=== PATIENT | female | born 1945 | race Caucasian/White ===

== ENCOUNTER 2024-04-21 17:59 | Emergency (ER) | payer MEDICARE, SELFPAY ==
[2024-04-21 18:01] VITALS: BP 176/112
[2024-04-21 18:38] VITALS: BMI 28.8
[2024-04-21 18:41] VITALS: BP 156/83
[2024-04-21 18:47] LABS: Blood Urea Nitrogen 25 mg/dl (7-17); Calcium 9.9 mg/dl (8.4-10.2); Carbon Dioxide 24 mmol/L (22-30); Chloride 101 mmol/L (98-107); Estimated Creatinine Clearance 57 ml/min; Glucose 133 mg/dl (70-99); Sodium 137 mmol/L (135-145); eGFR > 60.00
[2024-04-21 19:00] VITALS: BP 161/70
[2024-04-21 20:08] VITALS: BP 136/66
[2024-04-21] MEDS: DUONEB 3 ML INH (20:56)
[2024-04-21 21:00] VITALS: BP 131/70
[2024-04-21 21:03] LABS: % Basophils 0.4 % (0-2); % Eosinophils 1.2 % (0-6); % Immature Granulocytes 0.7 % (0-0.5); % Lymphocytes 13.8 % (20.5-51.1); % Neutrophils 75.9 % (42.2-75.2); Absolute Eosinophils 0.1 10^3/uL (0-0.7); Absolute Immature Granulocytes 0.1 10^3/uL (0-0.05); Absolute Lymphocytes 1.1 10^3/uL (1.2-3.4); Absolute Monocytes 0.7 10^3/uL (0.1-0.6); Absolute Neutrophils 6.2 10^3/uL (1.4-6.5); Hemoglobin 14.3 g/dL (12.0-16.0); Mean Corp Hgb Conc. 35.8 g/dL (33.0-37.0); Mean Corpuscular Hgb 30.2 pg (27.0-31.0); Mean Corpuscular Volume 84.6 fL (81.0-99.0); Nucleated Red Blood Cells % 0 %; Platelet Count 279 10^3/uL (130-400); Red Blood Cell Count 4.73 10^6/uL (4.20-5.40); Red Cell Dist. Width 13.9 % (11.5-14.5); White Blood Cell Count 8.1 10^3/uL (4.8-10.8)
--- NOTE | 2024-04-21 22:03 | ED.GENMED ---
History of Present Illness
General
Chief Complaint: Breathing Problem
Source: patient
Exam Limitations: none
Time Seen by Provider: 04/21/24 18:47
Nursing documentation reviewed up to this point in time: agreed with
History of Present Illness
History of Present Illness:
Patient to ED with complaint of worsening pneumonia. States she was diagnosed with double pneumonia 04/11. Placed on augmentin for 1 week. Had xray repeated on sunday and told she hadnt improved. Placed on additional course of augmentin.
Brought self to ED today because she is concerned that she is not improving. Denies fever/chills, SOB, CP/pressure. Reports cough. Brought self to ED for eval. SHe is awake and alert, nontoxic appearing, in no distess.
Past History
Past History
ED Past Medical History: HTN and Hypercholesterolemia
Review of Systems
Review of Systems
Allergies reviewed?: Yes
All Other Systems: ROS reviewed and negative except as documented in HPI and ROS
Constitutional: Reports no symptoms
EENT: Reports no symptoms
Respiratory: Reports cough
Cardiac: Reports no symptoms
ABD/GI: Reports no symptoms
: Reports no symptoms
Musculoskeletal: Reports no symptoms
Skin: Reports no symptoms
Neurological: Reports no symptoms
Psychiatric: Reports no symptoms
Phy Exam
General Physical Exam
General Presentation: well appearing and no apparent distress
General age: appears stated age
General Skin: warm and dry
General Habitus: normal
General Mental: alert
Cardiovascular Exam
Cardiovascular Exam: regular rate/rhythm
Pulmonary Exam
Pulmonary Exam: lungs clear, no respiratory distress, chest non tender and other (Pulse ox 98% RA)
Musculoskeletal Exam
Musculoskeletal Exam: full ROM and neuro vasc intact
Skin Exam
Skin Exam: normal color, warm/dry and no rash
Psychiatric Exam
Psychiatric Exam: normal mood/affect
Scores
Heart Failure Risk
Heart Failure Risk Score: Not Applicable
Course
Orders/Labs/Results
Orders:
Orders
04/21/24 18:21
Basic Metabolic Panel Urgent
04/21/24 19:11
CR Chest - 2 Views Urgent
Comment:
Reason For Exam: recent pneumonia
04/21/24 20:08
Complete Blood Count/With Diff Urgent
04/21/24 20:47
Ipratropium/Albuterol Sulfate [Duoneb] 3 ml INH R NOW STA
Abnormal Lab Results
04/21/24 04/21/24
18:21 20:08
Abs Immat Gran (auto) 0.1 H 10^3/uL
(0-0.05)
Absolute Lymphs (auto) 1.1 L 10^3/uL
(1.2-3.4)
Absolute Monos (auto) 0.7 H 10^3/uL
(0.1-0.6)
Immature Gran % 0.7 H %
(0-0.5)
Neutrophils % 75.9 H %
(42.2-75.2)
Lymphocytes % 13.8 L %
(20.5-51.1)
BUN 25 H mg/dl
(7-17)
Glucose 133 H mg/dl
(70-99)
04/21/24 20:08
04/21/24 18:21
Vital Signs
Initial and Last Documented VS:
Initial Vital Signs
Temp Pulse Resp BP Pulse Ox
98.9 F 87 18 176/112 97
04/21/24 18:01 04/21/24 18:01 04/21/24 18:01 04/21/24 18:01 04/21/24 18:01
Last Documented Vital Signs
Temp Pulse Resp BP Pulse Ox
98.9 F 67 14 131/70 97
04/21/24 18:01 04/21/24 20:30 04/21/24 20:30 04/21/24 21:00 04/21/24 21:15
*Radiology
Radiology exam reviewed: radiology read reviewed
*Pulse Oximetry
Patient hypoxic: no
*Critical Care Note
Total Time (30-74mins, 75-104mins- exclusive of procedures): Not Applicable
Update Note
Update Note:
Patient to ED with concern of pneumonia, not improving with antibiotics. Labs, CXR report reviewed. Mild infiltrate RLL. Afebrile in dept. Pulse ox 98% RA. SHe is in no distress, would like to return home. WIll continue current antibiotic as
prescribed, close follow up with PCP. Given instructions on s/s to return to ED and she is agreeable to plan.
ED Attending Note
-
Portions of this chart may have been created with voice recognition software.� Occasional wrong word or��sound alike� substitutions may have occurred due to the inherent limitations of voice recognition software.
Discharge Plan
Departure
Patient Disposition: Home (Routine Discharge)
Date of Disposition: 04/21/24
Time of Disposition: 21:21
Patient with high blood pressure during this ER visit?: No
Condition: Good
Covid-19: Not Applicable
Discharge Problem:
Pneumonia
Instructions: Pneumonia, Adult ED
Referrals:
Chris Codron MD [Family Provider] - Follow up in 2-3 days
Activity Restrictions/Additional Instructions:
Continue your antibiotic as prescribed. Return to the emergency department for any changes in/wosening of your symptoms
Interventions
Interventions:
*Risk Screen - Suicide Last Done: 04/21/24 18:01
*General Assessment Last Done: 04/21/24 18:01
*Neglect/Abuse Screening Last Done: 04/21/24 18:01
ED- Fall Risk Assessment Last Done: 04/21/24 18:45
*ED COVID-19 Vaccine History Last Done: 04/21/24 18:01
*Nursing Disposition Last Done: 04/21/24 21:27
ED- Cardiac Assessment Last Done: 04/21/24 18:45
ED- Pulmonary Assessment Last Done: 04/21/24 18:45
Discharge Date and Time
Discharge Date/Time: 04/21/24 21:44
Print Language: [place]
== END 2024-04-21 21:44 | disposition home or self-care (01) ==
LOC: EMR 17:59
PROVIDERS: EMERGENCY PHYSICIAN Student in an Organized Health Care Education/Training Program; FAMILY PHYSICIAN Internal Medicine
DX: J18.9 Pneumonia, unspecified organism (principal); E78.00 Pure hypercholesterolemia, unspecified; I10 Essential (primary) hypertension
CPT/HCPCS: 94640; 99284; 71046; 80048; 85025

== ENCOUNTER → 2025-04-17 11:51 | Outpatient (REF) | payer MEDICARE, SELFPAY | LOC: DHSLP 11:51 | PROVIDERS: ATTENDING PHYSICIAN Internal Medicine Critical Care Medicine; FAMILY PHYSICIAN Internal Medicine | DX: G47.33 Obstructive sleep apnea (adult) (pediatric) (principal) | CPT/HCPCS: 95806 ==